=== PATIENT | female | born 1955 | race African-American/Black ===

== ENCOUNTER 2024-06-01 17:32 | Emergency (ER) | payer MEDICARE, OTHER ==
[~2024-06-01] VITALS: Ht 154.9 cm; Wt 113.0 kg
[~2024-06-01 17:32] MED LIST: ALEN70TA79 PO; ATOR-2 PO; BISO5TAB13 PO; DIGO125T PO; EMPA25TA PO; OZEMPIC; [UNRECOGNIZED DRUG - CODE] PO
[2024-06-01 17:33] VITALS: TEMP 97.5
[2024-06-01] MEDS: ALBUTEROL (0.083%) 2.5MG/3ML NEB HHN STA (18:24)
[2024-06-01] MEDS: IPRATROPIUM BROMIDE (0.02%) 0.5MG/2.5ML NEB HHN STA (18:24)
[2024-06-01] MEDS ORDERED: EPINEPHRINE 5 MG in SODIUM CHLORIDE 0.9% 245 ML IV STA (18:53)
[2024-06-01] MEDS ORDERED: MIDAZOLAM HCL 100 MG in DEXT 5% WATER 80 ML IV ONE (19:00)
[2024-06-01 19:03] VITALS: PULSE 63; RESP 18
[2024-06-01] MEDS: EPINEPHRINE 5 MG in DEXT 5% WATER 245 ML IV PRN (19:31)
[2024-06-01] MEDS: AMIODARONE 150MG/100ML D5W 100 ML IV ONE (19:31)
[2024-06-01] MEDS: ROCURONIUM BROMIDE 10MG/ML VIAL 5ML IV ONE (19:31)
[2024-06-01] MEDS: MIDAZOLAM 100MG/100ML PREMIX IV PRN (19:31)
[2024-06-01] MEDS: ETOMIDATE 2MG/ML 10ML VIAL IV ONE (19:31)
[2024-06-01] MEDS ORDERED: AMIODARONE HCL 900 MG in DEXT 5% WATER 482 ML IV PRN (19:45)
[2024-06-01 20:20] VITALS: PULSE 94; RESP 18; O2SAT 90
[2024-06-01] MEDS ORDERED: VASOPRESSIN 20 UNIT in SODIUM CHLORIDE 0.9% 99 ML IV PRN (20:45)
[2024-06-01] MEDS ORDERED: NOREPINEPHRINE 8MG/250ML PMX 250 ML IV ONE (20:45)
[2024-06-01] MEDS: SODIUM CHLORIDE 0.9% 500 ML IV ONE (20:45)
[2024-06-01] MEDS ORDERED: SODIUM CHLORIDE 0.9% 500 ML IV NR (21:00)
[2024-06-01] MEDS ORDERED: NOREPINEPHRINE 8 MG in DEXTROSE 5% WATER 250 ML IV PRN (21:00)
[2024-06-01 21:30] LABS: BG BASE EXCESS -22.9 mmol/L (-2.0-3.0); BG CARBOXYHEMOGLOBIN 0.7 % (0.5-1.5); BG DEOXYHEMOGLOBIN 14.2 % (0.0-5.0); BG FRACTION INSPIRED OXYGEN 100; BG HCO3 ACT 10.4 mmol/L (21.0-28.0); BG METHEMOGLOBIN 0.2 % (0.5-1.5); BG OXYGEN SATURATION 85.7 % (94.0-98.0); BG OXYHEMOGLOBIN 84.9 % (94.0-98.0); BG PCO2 53.8 mmHg (32.0-45.0); BG PH 6.903 (7.350-7.450); BG PO2 81.7 mmHg (83.0-108.0); BG SAMPLE SITE LEFT RADIAL; BG TOTAL HEMOGLOBIN 15.7 g/dL (12.0-16.0); BG TOTAL RESPIRATORY RATE 18 b/min; BG VENT MODE VENT - AC
[2024-06-01 21:36] VITALS: PULSE 108; RESP 24; O2SAT 90
[2024-06-01] MEDS: SODIUM BICARBONATE 8.4% 50MEQ/50ML SYR IV NR (22:07)
[2024-06-01] MEDS ORDERED: ENOXAPARIN 40MG/0.4ML SYR SUBCUT SCH (22:15)
[2024-06-01] MEDS ORDERED: DEXT 5%/0.45% NACL 1000ML 1,000 ML IV SCH (22:15)
[2024-06-01] MEDS ORDERED: ACETAMINOPHEN 650MG/20.3ML UDC GT PRN ×2 (22:15)
[2024-06-01] MEDS ORDERED: ONDANSETRON HCL 4MG/2ML INJ IV PRN (22:15)
[2024-06-01] MEDS ORDERED: ACETAMINOPHEN 650MG SUPP PR PRN ×2 (22:15)
[2024-06-01] MEDS: NOREPINEPHRINE 8MG/250ML PMX 250 ML IV PRN (22:15)
[2024-06-01] MEDS ORDERED: ACETAMINOPHEN 325MG TABLET PO PRN ×2 (22:15)
[2024-06-01 23:09] LABS: BASOPHILS % 0.8 % (0.0-2.0); EOSINOPHILS % 0.1 % (0.0-5.0); HEMATOCRIT. 46.4 % (36.0-48.0); HEMOGLOBIN. 14.2 g/dL (12.0-16.0); MEAN CORPUSCULAR HEMOGLOBIN 27.9 pg (28.0-32.0); MEAN CORPUSCULAR HGB CONC 30.5 g/dL (31.0-37.0); MEAN CORPUSCULAR VOLUME 91.4 fL (81.0-99.0); MEAN PLATELET VOLUME 9.3 fl (7.4-10.4); MONOCYTES % 9.8 % (2.0-8.0); NEUTROPHILS % 72.3 % (40.0-76.0); PLATELET 241 x1000/uL (130-400); RED BLOOD CELL COUNT 5.08 mill/uL (4.2-5.4); RED CELL DISTRIBUTION WIDTH 19.4 % (11.6-14.6); WHITE BLOOD COUNT 12.3 x1000/uL (4.5-11.0)
[2024-06-01 23:20] LABS: DIFFERENTIAL COMMENT 1
[2024-06-01 23:25] LABS: D-DIMER 6.88 mg/L FEU (<0.50); INR 2.5; PROTHROMBIN TIME 26.4 sec (9.6-11.0)
[2024-06-01 23:34] LABS: CHLORIDE 111 mEq/L (98-107); POTASSIUM 4.6 mEq/L (3.5-5.1); SODIUM 141 mEq/L (136-145)
[2024-06-01 23:35] LABS: CARBON DIOXIDE 14 mEq/L (21-32)
[2024-06-01 23:36] LABS: CALCIUM 7.2 mg/dL (8.7-10.4)
[2024-06-01 23:40] LABS: GLUCOSE 206 mg/dL (70-105); UREA NITROGEN BLOOD 38 mg/dL (9-23)
[2024-06-01 23:55] LABS: TROPONIN I HIGH SENSITIVITY 484 ng/L (3.0-34)
[2024-06-02 00:22] VITALS: PULSE 94; RESP 24; O2SAT 96
[2024-06-02] MEDS: VASOPRESSIN 20 UNIT in SODIUM CHLORIDE 0.9% 99 ML IV PRN (00:33)
[2024-06-02 00:49] VITALS: O2SAT 94
[2024-06-02] MEDS ORDERED: HEPARIN 5000 UNITS/ML VIAL IV PRN ×2 (02:45)
[2024-06-02] MEDS ORDERED: HEPARIN 25,000 UNITS PREMIX 250 ML IV PRN (02:45)
[2024-06-02] MEDS ORDERED: HEPARIN 5000 UNITS/ML VIAL IV SCH (02:45)
[2024-06-02] MEDS ORDERED: PHENYLEPHRINE 50 MG in DEXT 5% WATER 245 ML IV PRN (03:00)
[2024-06-02] MEDS ORDERED: PHENYLEPHRINE 100 MG in DEXT 5% WATER 250 ML IV PRN (03:00)
[2024-06-02 04:12] VITALS: PULSE 104; RESP 24; O2SAT 97
[2024-06-02 05:26] LABS: BG BASE EXCESS -22.6 mmol/L (-2.0-3.0); BG CARBOXYHEMOGLOBIN 1.2 % (0.5-1.5); BG DEOXYHEMOGLOBIN 22.3 % (0.0-5.0); BG FRACTION INSPIRED OXYGEN 100; BG HCO3 ACT 9.6 mmol/L (21.0-28.0); BG METHEMOGLOBIN 0.3 % (0.5-1.5); BG OXYGEN SATURATION 77.4 % (94.0-98.0); BG OXYHEMOGLOBIN 76.2 % (94.0-98.0); BG PCO2 45.4 mmHg (32.0-45.0); BG PH 6.942 (7.350-7.450); BG PO2 63.8 mmHg (83.0-108.0); BG SAMPLE SITE RIGHT RADIAL; BG TOTAL HEMOGLOBIN 15.5 g/dL (12.0-16.0); BG VENT MODE VENT - AC
[2024-06-02] MEDS ORDERED: CEFAZOLIN 2GM/100ML 100 ML IV SCH (06:00)
[2024-06-02] MEDS ORDERED: CEFAZOLIN 1000MG PREMIX 50ML IV SCH (06:00)
[2024-06-02 06:11] LABS: HEMATOCRIT. 54.7 % (36.0-48.0); HEMOGLOBIN. 16.3 g/dL (12.0-16.0); MEAN CORPUSCULAR HEMOGLOBIN 27.9 pg (28.0-32.0); MEAN CORPUSCULAR HGB CONC 29.8 g/dL (31.0-37.0); MEAN CORPUSCULAR VOLUME 93.6 fL (81.0-99.0); MEAN PLATELET VOLUME 9.8 fl (7.4-10.4); PLATELET 271 x1000/uL (130-400); RED BLOOD CELL COUNT 5.84 mill/uL (4.2-5.4); RED CELL DISTRIBUTION WIDTH 20.4 % (11.6-14.6); WHITE BLOOD COUNT 22.8 x1000/uL (4.5-11.0)
[2024-06-02] MEDS: HEPARIN 60 UNITS/KG BOLUS IV SCH (06:25)
[2024-06-02] MEDS: HEPARIN 25,000 UNITS PREMIX 250 ML IV SCH (06:27)
[2024-06-02 06:29] LABS: POTASSIUM 5.2 mEq/L (3.5-5.1)
[2024-06-02 06:35] LABS: CREATININE 2.5 mg/dL (0.6-1.0)
[2024-06-02 06:41] LABS: DIFFERENTIAL COMMENT 1
[2024-06-02 07:12] VITALS: BP 119/86; PULSE 105; RESP 24; O2SAT 96
[2024-06-02] MEDS ORDERED: SODIUM BICARBONATE 8.4% 50MEQ/50ML SYR IV NR (07:30)
[2024-06-02] MEDS ORDERED: VANCOMYCIN 1000MG/250ML 250 ML IV SCH (08:15)
[2024-06-02] MEDS ORDERED: VANCOMYCIN 1G PREMIX 200 ML IV SCH ×2 (08:30→21:00)
[2024-06-02] MEDS ORDERED: HYDROCORTISONE SOD SUCCINATE 100 MG/2 ML VIAL IV SCH (09:00)
[2024-06-02] MEDS ORDERED: PIPERACILLIN/TAZO 3.375G/50ML 50 ML IV SCH (09:00)
[2024-06-02] MEDS ORDERED: SODIUM BICARBONATE 100 MEQ in SODIUM CHLORIDE 0.45% 900 ML IV SCH (09:00)
[2024-06-02] MEDS ORDERED: HEPARIN BOLUS PRN aPTT <30 IV (13:30)
[2024-06-02] MEDS ORDERED: HEPARIN BOLUS PRN aPTT 30-44 IV (13:30)
[2024-06-02 17:05] LABS: ANISOCYTOSIS 1+; PLATELET ESTIMATE NORMAL
== END 2024-06-02 08:26 ==
LOC: ER 17:32 → EDBEDREQ 18:18 → EDBEDREQTM 19:56 → EDBEDREQSVC 19:56 → EDBEDREQ 19:56 → ER 06-02 08:26
DX: I46.9 Cardiac arrest, cause unspecified (principal); R06.02 Shortness of breath; J44.9 Chronic obstructive pulmonary disease, unspecified; I25.10 Atherosclerotic heart disease of native coronary artery without angina pectoris; I50.89 Other heart failure; I13.0 Hypertensive heart and chronic kidney disease with heart failure and stage 1 through stage 4 chronic kidney disease, or unspecified chronic kidney disease; N18.4 Chronic kidney disease, stage 4 (severe); E11.22 Type 2 diabetes mellitus with diabetic chronic kidney disease; Z46.82 Encounter for fitting and adjustment of non-vascular catheter; Z79.899 Other long term (current) drug therapy; Z87.440 Personal history of urinary (tract) infections; Z95.5 Presence of coronary angioplasty implant and graft; Z95.810 Presence of automatic (implantable) cardiac defibrillator
CPT/HCPCS: 80048 ×2; 82962 ×2; 83880; 85025 ×2; 85379; 85610; 84484 ×2; 36415 ×2; 71045; 82805 ×2; 82375 ×2; 31500; 94002; 93005; 96367 ×2; 96365; 99291; 36600 ×2; 36556; 85730; 94003; 96368; 92950; 96366; J0282; J3490 ×5; J0690; J1644 ×2; J7060; 94070; J2250; J7050